=== PATIENT | female | born 1995 | race Two or more races ===

== ENCOUNTER → 2024-05-19 | Outpatient (BNVA) | payer MEDICAID, SELFPAY | END | disposition home or self-care (01) | PROVIDERS: PCP Nurse Practitioner Family; Referring Provider Nurse Practitioner Family; Visit Provider Nurse Practitioner Family | DX: Z71.2 Person consulting for explanation of examination or test findings (principal); N94.3 Premenstrual tension syndrome | CPT/HCPCS: 99212; G0463 ==

== ENCOUNTER → 2024-09-07 | Outpatient (BNVA) | payer MEDICAID, SELFPAY | END | disposition home or self-care (01) | PROVIDERS: PCP Nurse Practitioner Family; Referring Provider Nurse Practitioner Family; Visit Provider Nurse Practitioner Family | DX: J20.9 Acute bronchitis, unspecified (principal) | CPT/HCPCS: 87804; 99213 ==

== ENCOUNTER → 2024-10-11 | Outpatient (BNVA) | payer MEDICAID, SELFPAY | END | disposition home or self-care (01) | PROVIDERS: PCP Nurse Practitioner Family; Referring Provider Nurse Practitioner Family; Visit Provider Nurse Practitioner Family | DX: Z71.85 Encounter for immunization safety counseling (principal); E66.3 Overweight; Z13.220 Encounter for screening for lipoid disorders; Z13.1 Encounter for screening for diabetes mellitus; Z00.01 Encounter for general adult medical examination with abnormal findings | CPT/HCPCS: 99214 ==

== ENCOUNTER → 2024-10-22 | Outpatient (BNVA) | payer MEDICAID, SELFPAY | END | disposition home or self-care (01) | PROVIDERS: PCP Nurse Practitioner Family; Referring Provider Nurse Practitioner Family; Visit Provider Nurse Practitioner Family | DX: Z71.1 Person with feared health complaint in whom no diagnosis is made (principal); R19.5 Other fecal abnormalities | CPT/HCPCS: 99213 ==

== ENCOUNTER → 2024-11-01 | Outpatient (BNVA) | payer MEDICAID, SELFPAY | END | disposition home or self-care (01) | PROVIDERS: PCP Nurse Practitioner Family; Referring Provider Nurse Practitioner Family; Visit Provider Nurse Practitioner Family | DX: Z71.2 Person consulting for explanation of examination or test findings (principal) | CPT/HCPCS: 99212; G0463 ==

== ENCOUNTER → 2024-11-10 | Outpatient (BNVA) | payer MEDICAID, SELFPAY | END | disposition home or self-care (01) | PROVIDERS: PCP Nurse Practitioner Family; Referring Provider Nurse Practitioner Family; Visit Provider Nurse Practitioner Family | DX: R22.41 Localized swelling, mass and lump, right lower limb (principal) | CPT/HCPCS: 99213 ==

== ENCOUNTER → 2024-11-17 | Outpatient (BNVA) | payer MEDICAID, SELFPAY | END | disposition home or self-care (01) | PROVIDERS: PCP Nurse Practitioner Family; Referring Provider Nurse Practitioner Family; Visit Provider Nurse Practitioner Family | DX: R22.41 Localized swelling, mass and lump, right lower limb (principal) | CPT/HCPCS: 99212; 99213 ==

== ENCOUNTER → 2024-11-29 | Outpatient (BNVA) | payer MEDICAID, SELFPAY | END | disposition home or self-care (01) | PROVIDERS: PCP Nurse Practitioner Family; Referring Provider Nurse Practitioner Family; Visit Provider Nurse Practitioner Family | DX: F32.1 Major depressive disorder, single episode, moderate (principal); G47.00 Insomnia, unspecified; F40.9 Phobic anxiety disorder, unspecified; K08.89 Other specified disorders of teeth and supporting structures | CPT/HCPCS: 99214 ==

== ENCOUNTER → 2024-12-14 | Outpatient (BNVA) | payer MEDICAID, SELFPAY | END | disposition home or self-care (01) | PROVIDERS: PCP Nurse Practitioner Family; Referring Provider Nurse Practitioner Family; Visit Provider Nurse Practitioner Family | DX: Z09 Encounter for follow-up examination after completed treatment for conditions other than malignant neoplasm (principal); F41.9 Anxiety disorder, unspecified; F32.1 Major depressive disorder, single episode, moderate | CPT/HCPCS: 99212; G0463 ==

== ENCOUNTER 2025-06-01 12:53 | Outpatient (AMB) | payer MEDICAID, SELFPAY ==
--- NOTE | 2025-06-01 13:05 | ACNOTE_ITS ---
Vital Signs 06/01/25 13:06 Height 1.73 m Height Method Stated Weight 77.281 kg Weight Measurement Method Standing Scale BMI 25.8 BP 131/94 H Blood Pressure Source Automatic Cuff Blood Pressure Location Right Upper Arm Position Sitting Respiration 18 Pulse 76 Pulse Source Monitor Temp 97.3 F Temp Source Temporal Artery Scan Pulse Oximetry (%) 98 Oxygen Delivery Method Room Air Allergies/Meds Allergies & Medications Allergies No Known Allergies Allergy (Verified 06/01/25 13:08) Medication Reconciliation sertraline 50 mg tablet 50 mg PO QDAY #30 tabs 11/29/24 [Rx Confirmed 06/01/25] cyclobenzaprine 5 mg tablet 5 mg PO QHS PRN muscle spasm #5 tabs 06/01/25 [Rx] MA Intake Visit Data Collection New Patient or Established: Established Patient (seen at [facility] within 3 years) Seen by Clinical Staff ONLY (RN/MA): No Pain Present Currently: No Pain scale:: 0 Pain Scale Used: Bender-Martinez/Numerical [employer] Required: No PCP or OBGYN visit in last 3 months: Yes Hx Now: No Do You Feel Safe at Home: Yes Authorities Contacted: N/A Smoking Status Smoking Status: Never smoker Immunization / Flu Flu Vaccine in the Last 12 Months: Yes Flu Vaccine Exclusion Criteria: Already Received Past Medical History Past Medical History NEUROLOGIC: Negative Neurological Disorders CARDIAC: Negative Cardiac Disorders or Congestive Heart Failure RESPIRATORY: Negative Chronic Obstructive Pulmonary Disease (COPD) GASTROINTESTINAL: Negative Gastrointestinal Disorders GENITOURINARY: Negative Genitourinary Disorders or Renal Disease ENDOCRINE: Negative Endocrine Disorders, Diabetes Mellitus Type 1 or Diabetes Mellitus Type 2 HEMATOLOGIC: Negative Blood Disorders OTHER HISTORY: Negative Hospitalization, Autoimmune Disease, Down Syndrome, Developmental Delay, Shingles or Falls Family History FAMILY HISTORY: Positive Family Cardiac Disorders (MOTHER- HTN); Negative Family Psychiatric Problems, Family Respiratory Disorders, Family Gastrointestinal Problems, Family Cancer, Family Surgery or Family Anesthesia Reaction Surgical History SURGICAL: Negative Section Social History SMOKING STATUS: Smoking status: Never smoker SECOND HAND EXPOSURE: second hand exposure: No ALCOHOL: Alcohol Intake: Never HOUSING: Housing: House LIVES WITH: Lives With: Spouse Patient Portal Questionaires PHQ-9 PHQ-2 Over the last 2 weeks, how often have you been bothered by any of the following problems? 1. Little interest or pleasure in doing things: not at all 2. Feeling down, depressed, or hopeless: not at all Total score: 0 PHQ-9 8. Moving or speaking so slowly that other people could have noticed? - Or the opposite - being so fidgety or restless that you have been moving around a lot more than usual: several days Source: Developed by Drs. Gaston Clarke, Nena Cortes, Niko Torres and colleagues, with an educational cherry from [employer]. Social History Living Situation History Lives With: Spouse Housing: House Tobacco History Smoking Status: Never smoker Second Hand Smoke Exposure: No Alcohol History Alcohol Intake: Never Substance Use History Substance Use: NONE Domestic Abuse History Do You Feel Safe at Home: Yes Review of Systems Report any current symptoms Only answer those that you have currently: Past Medical History Past Medical History Have you ever been diagnosed with any of the following: Cardiology Problems Congestive Heart Failure: No Respiratory Problems Chronic Obstructive Pulmonary Disease (COPD): No Genital/Urinary Problems Renal Disease: No Endocrine Problems Diabetes Mellitus Type 1: No Diabetes Mellitus Type 2: No Other Problems Hospitalization: No Autoimmune Disease: No Down Syndrome: No Developmental Delay: No Shingles: No Falls: No History of Present Illness HPI Narrative Patient is a 2-year-old female with no relevant past medical history comes into the [facility] with complaints of lower right scapular pain which she states that has been going on for a few years now and has been on and off, but for the last 6 months the pain has been worse and more consistent during the night. She does state that she exercises routinely, but for the past few months she has not exercised and she states that her pain has been a little bit worse. She does work as a translator and interpreter at [employer] and does state that she does a lot of typing in the computer which could also be co ntributing to her pain. She denies any trauma and does not recall any abnormal movements. She does mention that the pain is a muscle ache and is a 7 out of 10. She also mentioned that she had some nausea associated with certain foods that were more greasy or heavier, but denies any fevers, abdominal pain, vomiting, or any jaundice. On physical exam patient did not have any right upper quadrant pain and did not have any decreased range of motion in the right arm. Otherwise has no other complaints. Advised the patient to use warm compresses and we will send patient 5 pills of cyclobenzaprine at bedtime as needed for muscle spasms and will follow-up in 1 month to see if her symptoms have improved. Also encourage patient to use Tylenol and ibuprofen as needed every 8 hours, but do not use more than 3 days straight of ibuprofen. Review of Systems Review of Systems Systems Reviewed: All systems reviewed, normal except as documented Objective/Exam Other Other exam information: Gen: A&O X 3, NAD HEENT: NCAT, EOMI, Pupils reactive NATHEN, not icteric. External ears normal. No rhinorrhea. Moist mucous membranes. Neck: Supple, full range of motion, no observable masses, No meningeal sign. Lungs: No Respiratory distress, clear bilateral. CV: RRR, no murmurs. Abdomen: Soft, nondistended, no tenderness, No rebound tenderness. MSK: No joint swelling, no redness, peripheral pulses present, no peripheral edema. Skin: No rashes, petechiae, lesions. Neuro: No focal neurological deficits appreciated, sensory and motor intact. Psych: Cooperative, appropriate mood and effect. Assessment & Plan Diagnosis / Problem List (1) Muscle spasm: Status: Acute Assessment & Plan: Patient states has been having some right lower scapular pain for years on and off, but has been worse for the last 6 months. He states that it is like a muscle ache and she does do a lot of desk work and denies any trauma Most likely muscle spasm given work and presentation of pain without any decreased range of motion. Plan: Ordered cyclobenzaprine 5 mg at bedtime as needed for total of 5 tablets Recommended warm compresses Recommended Tylenol and ibuprofen as needed, but to not use ibuprofen more than 3 days straight and every 8 hour as needed If no improvement in the next month then we will order physical therapy and imaging. (2) Nausea: Status: Acute Assessment & Plan: Patient has been complaining of some nausea on and off with certain types of food which she describes as heavier foods and states that they are a little bit creature than 100 typical diet consist of. She did deny having any abdominal pain or any fevers No RUQ pain on exam Plan: Recommended to avoid greasy foods Recommended to go to the ER if worsening nauseous and vomiting if it was associated with right upper quadrant pain or any fevers. Additional Plan Case disclosed with Attending Dr. Shannon Rodriguez PGY2 Disclaimer: Even though this this note was dictated by speech recognition and even though it was carefully revised there may still be minor errors in curriculum writer due to voice recognition software. Office Procedures [facility] Level of Care Nursing/Assessment Patient Status: Established Patient Nursing Assessment/Reassessment: Medication Reconciliation, Update PMH in EMR and Vital Signs Coordination of Care: Complex Care and Chronic Disease 1-5, Complex Care/Chronic Disease 5 or more, Consent,records obtained, informed consent, Lab and Imaging orders, Results/Orders obtained and Staff clarify orders Established Patient Charge Established Patient Point Assignment: 125 Established Patient Point Charge: Level 4 (120-155) TB Screening LTBI Screening: Has patient traveled, was born, or resided for at least 1 month, or frequent border crossing into a country with an elevated TB rate: No Immunosuppression, current or planned (HIV, organ transplant, treated with biologic agents, steroids, or other immunosuppression medication): No Close contact to someone with infectious TB disease during lifetime: No Homelessness or incarceration, current or past: No TB testing indicated at this time (at least 1 yes above): No
[2025-06-01 13:06] VITALS: BP 131/94; PULSE 76; RESP 18; TEMP 36.3; O2SAT 98; BMI 25.8
== END 2025-06-01 13:45 | disposition home or self-care (01) ==
LOC: HODAHC 12:53
PROVIDERS: PCP Nurse Practitioner Family; Referring Provider Nurse Practitioner Family; Supervising Provider Internal Medicine
DX: M62.830 Muscle spasm of back (principal); R11.0 Nausea
CPT/HCPCS: 99214; G0463